=== PATIENT | female | born 1970 | race Two or more races ===

== ENCOUNTER 2025-05-12 12:28 | Emergency (ER) | payer MEDICAID, SELFPAY ==
[2025-05-12 12:57] VITALS: BP 126/78; PULSE 80; RESP 18; TEMP 36.9; O2SAT 99
--- NOTE | 2025-05-12 13:00 | XR_ITS ---
Examination: Left hip AP, lateral, AP pelvis 3 views Technique: Hip AP lateral, AP pelvis, 3 views Exam date and time: 05/12/2025 at 1:22 p.m. Indication: Ground-level fall while patient was shopping. Reported left hip pain in addition to left elbow pain and left-sided headache. COMPARISON: AP pelvic radiograph 01/03/2004. FINDINGS: No evidence for acute fracture or dislocation of the left hip. No acute pelvic fracture is evident. No abnormal widening of the sacroiliac joints or pubic symphysis. 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 Enthesophytes have developed at the bilateral trochanters since prior radiograph, particular at the greater trochanters, in addition along the lateral margins of the bilateral iliac bones. No concerning lytic or blastic lesions are seen. IMPRESSION: No evidence for acute fracture or dislocation. Degenerative changes as described.
--- NOTE | 2025-05-12 13:00 | XR_ITS ---
Examination: CT brain head without contrast. 2-D sagittal coronal reconstructions Date and time of exam: 05/12/2025 at 1:55 p.m. INDICATION: Status post fall with left-sided headache CTDI: vol (mGy): 48.3 DLP: (mGycm): 991 Technique: Multiple CT axial sections of the brain have been obtained, 5 mm slice thickness. Contrast has not been administered. 2-D sagittal, coronal reconstructions have been obtained Low dose protocols were performed. One or more of the following dose reduction techniques were used; automated exposure control, adjustment of the mA and/or KV according to patient size, use of iterative reconstruction technique. FINDINGS: BRAIN PARENCHYMA: The brain parenchyma appears normal for age. Rodriguez-white matter junctions are intact; no evidence for acute transcortical ischemic infarction. No intraparenchymal hemorrhage, discrete mass or midline shift. No cerebellar tonsillar ectopia. No apparent acute abnormality of the cerebellum. VENTRICLES / EXTRA-AXIAL SPACES: No hydrocephalus, extra-axial hematoma or mass. CALVARIUM: No skull fracture or concerning focal lesion. SINUSES: Very mild mucosal hypertrophy is present along the alveolar recesses of both maxillary sinuses. No masses or fluid levels in the paranasal sinuses otherwise. The visualized mastoid air cells are clear. OTHER EXTRACRANIAL STRUCTURES: No apparent scalp hematoma. Periapical lucency involves the posterior most right maxillary molar. IMPRESSION: Negative noncontrast head CT for acute intracranial abnormality or skull fracture. Mild bilateral maxillary sinus mucosal hypertrophy. Periapical lucency involving the posterior most right maxillary molar could be related to a dental abscess.
--- NOTE | 2025-05-12 13:00 | XR_ITS ---
EXAMINATION: Left ankle 2 views Date and time: May 12, 2025, 1319 hours INDICATIONS: Ground-level fall today with injury to the elbow, elbow pain. FINDINGS: No acute fracture No dislocation IMPRESSION: No acute fracture
--- NOTE | 2025-05-12 13:01 | EDNOTE_ITS ---
ED Fall Injury RME/HPI General Chief Complaint: Fall Stated Complaint: SLIP/FALL, HIT HEAD AND LEFT ARM AND HIP Time Seen by Provider: 05/12/25 12:30 Arrival date/time: 05/12/25 12:28 54-year-old female patient was brought in by family for evaluation regarding ground-level fall while patient was shopping in [employer] Patient complained of left-sided headache left elbow pain and left hip pain patient is ambulatory. Patient is not take any blood thinner. Incident happened few minutes prior to ER visit. Related Data Home Medications ?Medication ?Instructions ?Recorded ?Confirmed atorvastatin 20 mg tablet 20 mg PO QDAY 05/25/2305/25 metformin 1,000 mg tablet 1,000 mg PO BID 05/25/23 Previous Rx's ?Medication ?Instructions ?Recorded ibuprofen 800 mg tablet 800 mg PO Q8H PRN pain #30 t abs 05/12/25 Allergies Allergy/AdvReac Type Severity Reaction Status Date / Time No Known Allergies Allergy Verified 05/12/25 12:32 Review of Systems Review of Systems Narrative Review of Systems: Review of system reviewed and within normal limits except mentioned in HPI ED Exam Narrative Physical exam: VITAL SIGNS: Reviewed. GENERAL APPEARANCE: Alert and interactive, follows commands, no acute distress, HEAD AND FACE: Left sided scalp tenderness on the temporal area ENT: PERRL, pink conjunctivitis, eyelid no trauma, Mucous membrane moist. NECK: Supple, nontender, no nuchal rigidity. CHEST: No tenderness, no crepitus, no paradoxical movement, no retractions. LUNGS: Clear, well ventilated, symmetric, no rales, no wheezing, no ronchi, no stridor, good breath sounds bilaterally. HEART: Regular rate, regular rhythm, no murmur, no gallops. ABDOMEN: Soft, positive bowel sounds, nondistended, no guarding, nontender, no rebound, no masses, RECTAL: Deferred. GENITAL: Deferred. NEUROLOGICAL: Gross motor function intact sensory function intact, Appropriate for age. MUSCULOSKELETAL: low back nontender, full range of motion. EXTREMITIES: Left elbow tenderness, left hip tenderness, no deformity no swelling no crepitus, full range of motion. SKIN: Color pink, dry, no rash, no lacerations, no abrasions, no contusions. LYMPHATICS: Deferred. Course Quality Measures none Orders Category Date Time Status CT head/brain wo con Stat Exams 05/12/25 13:00 Completed XR elbow LT 2V Stat Exams 05/12/25 13:00 Completed XR hip LT w pelvis 2-3V Stat Exams 05/12/25 13:00 Completed Acetaminophen Tab [Tylenol ES Tab] Med 05/12/25 13:00 Discontinued 1,000 mg PO X1 ONE Vital Signs Vital signs: Vital Signs Temperature 98.5 F 05/12/25 12:57 Pulse Rate 80 05/12/25 12:57 Respiratory Rate 18 05/12/25 12:57 Blood Pressure 126/78 05/12/25 12:57 Pulse Oximetry (%) 99 05/12/25 12:57 Oxygen Delivery Method Room Air 05/12/25 12:57 Fall [facility] Narrative [facility] Narrative:: 54-year-old female patient was brought in by family for evaluation regarding ground-level fall while patient was shopping in [employer] Patient complained of left-sided headache left elbow pain and left hip pain patient is ambulatory. Patient is not take any blood thinner. Incident happened few minutes prior to ER visit. CT scan of the head came back unremarkable. X-ray of the elbow came back unremarkable x-ray of the hip came back unremarkable. Results discussed with the patient and family. Patient stable for discharge Patient data External records reviewed:: None Clinical information provided by:: none Social determinants that could affect healthcare access:: none Patient has the following chronic illnesses:: None How is presenting disease/condition affected by chronic disease/condition?: no chronic disease Evaluation data The following diagnostics were reviewed and interpreted by me:: radiology exam(s) Lab and/or radiology exams considered but not ordered:: None Interpretation Summary: see [facility] Medications / Prescriptions Medications or Prescriptions considered but not ordered:: None Medication administrations:: Medication Administration History Discontinued Medications Acetaminophen (Acetaminophen 500 Mg Tablet) 1,000 mg PO X1 ONE Stop: 05/12/25 13:01 Last Admin: 05/12/25 13:09 Dose: 1,000 mg Documented By: [facility] Tylenol Consultations Consultation(s) initiated? (list below): No Diagnosis Fall Differential Diagnosis: other (Fall, closed head injury, left elbow pain left hip pain) Most likely diagnosis given after review of the tests above:: Fall, closed head injury, left elbow pain left hip pain Admission Indicated Admission indicated?: not indicated Admission Request Was there a request for admission?: No Disposition Plan Disposition Plan: Discharge Discharge Attestation Discharge Attestation: The patient and all family members were given an opportunity to ask questions and understood the discharge instructions. Discharge instructions specifically effects, indications for sooner follow up or return to the emergency department, and the expected course of current diagnosis. Patient condition: Stable Discharge Plan Plan Patient Disposition: HOME (Self Care) Discharge Disposition comment: stable Prescriptions/Referrals Prescriptions/Med Rec: New ibuprofen 800 mg tablet 800 mg PO Q8H PRN (Reason: pain) Qty: 30 0RF No Action atorvastatin 20 mg tablet 20 mg PO QDAY metformin 1,000 mg tablet 1,000 mg PO BID Referrals: No Primary/Family,Physician [Primary Care Provider] - In 1 week Problem List Clinical Impression: Fall, Closed head injury, Left elbow pain, Hip pain, left Patient/Caregiver Discharge Instructions Discharge Activity: activity as tolerated Education Materials: Understanding the Pain Response Additional Instructions: Thank you for the opportunity for serving you today. You are stable for discharged . You are advised to: Follow-up with your PCP in 1 to 2 days Return to ED for worsening of symptoms Increase oral fluids Take medication as prescribed Print Language: Thai Stand Alone Forms: [employer] Award Info., Patient Portal Info Letter ANISH/KENDRA Supervising Physician ANISH/KENDRA Supervising Physician: MD Wilver
[2025-05-12] MEDS: ACETAMINOPHEN 500 MG TABLET 1000 MG PO (13:09)
== END 2025-05-12 15:08 | disposition home or self-care (01) ==
PROVIDERS: Emergency Provider Family Medicine
DX: S09.90XA Unspecified injury of head, initial encounter (principal); M25.552 Pain in left hip; M25.522 Pain in left elbow; W01.10XA Fall on same level from slipping, tripping and stumbling with subsequent striking against unspecified object, initial encounter
CPT/HCPCS: 70450; 73070; 73502; 99283; A9270